=== PATIENT | male | born 1995 | race African-American/Black ===

== ENCOUNTER 2019-03-02 12:50 | Emergency (ER) | payer MEDICAID, OTHER ==
[~2019-03-02] VITALS: Ht 195.6 cm; Wt 99.8 kg
[2019-03-02 12:50] VITALS: BP 123/77
[~2019-03-02 12:50] MED LIST: ALBU18
[2019-03-02] MEDS ORDERED: BACITRACIN TOP OINT 1 UD PKG TOP ONE (14:00)
[2019-03-02] MEDS ORDERED: LIDOCAINE 1% (LOCAL ANESTH.) PF 5ml SDV ID ONE (14:00)
[2019-03-02] MEDS ORDERED: LIDOCAINE 1% HCL (LOCAL ANESTH.) INJ 20ML MDV ONE (14:35)
[2019-03-02] MEDS ORDERED: LIDOCAINE 1% HCL (LOCAL ANESTH.) INJ 20ML MDV IJ ONE (14:45)
== END 2019-03-02 15:14 | disposition home or self-care (01) ==
LOC: ER 12:50
DX: S61.213A Laceration without foreign body of left middle finger without damage to nail, initial encounter (principal); F17.210 Nicotine dependence, cigarettes, uncomplicated; W26.0XXA Contact with knife, initial encounter; Y93.89 Activity, other specified; Y92.89 Other specified places as the place of occurrence of the external cause; Y99.8 Other external cause status
CPT/HCPCS: 12001; 99283; J2001

== ENCOUNTER 2020-02-15 13:58 | Emergency (ER) | payer MEDICAID ==
[~2020-02-15] VITALS: Ht 182.9 cm; Wt 97.5 kg
[2020-02-15 14:30] VITALS: BP 125/86
[2020-02-15] MEDS ORDERED: METHOCARBAMOL 500 MG TAB PO ONE (16:15)
[2020-02-15] MEDS ORDERED: KETOROLAC TROMETH 60MG/2ML VIAL IM ONE (16:15)
[2020-02-15] MEDS ORDERED: methylPREDNISolone SOD SUCC 125 MG/2 ML VL IM ONE (16:15)
== END 2020-02-15 17:09 | disposition home or self-care (01) ==
LOC: ER 14:01
DX: M54.16 Radiculopathy, lumbar region (principal); R20.2 Paresthesia of skin; F17.210 Nicotine dependence, cigarettes, uncomplicated; Z79.899 Other long term (current) drug therapy
CPT/HCPCS: 96372; 99284; J1885; J2930

== ENCOUNTER 2020-08-22 18:05 | Emergency (ER) | payer MEDICAID ==
[~2020-08-22] VITALS: Ht 182.9 cm; Wt 99.3 kg
[2020-08-22 18:52] VITALS: BP 120/78
[2020-08-22] MEDS ORDERED: cefTRIAXone SOD 1,000 MG VL IM ONE (20:00)
[2020-08-22] MEDS ORDERED: HYDROcodone-ACET 10/325MG TAB PO ONE (20:00)
== END 2020-08-22 20:25 | disposition home or self-care (01) ==
LOC: ER 18:05
DX: L03.115 Cellulitis of right lower limb (principal)
CPT/HCPCS: 96372; 99283; J0696